=== PATIENT | female | born 1960 | race Caucasian/White ===

== ENCOUNTER 2017-11-18 17:58 | Emergency (ER) | payer OTHER ==
[2017-11-18] MEDS ORDERED: LIDOCAINE 1% 20 ML MDV ONE (18:10)
--- NOTE | 2017-11-18 18:24 | ER ---
Nurse's Notes [facility] Name: Faith Antunez Age: 57 yrs Sex: Female : 1960 Arrival Date: 11/18/2017 Time: 18:01 Bed 14 Private MD: Diagnosis: Laceration without foreign body of left thumb without damage to nail Presentation: 11/18 18:05 Presenting complaint: Patient states: I cut my left thumb with a knife while cutting la1 chicken. Transition of care: patient was not received from another setting of care. Onset of symptoms was November 18, 2017. Initial Sepsis Screen: Does the patient meet any 2 criteria? No. Patient's initial sepsis screen is negative. Does the patient have a suspected source of infection? No. Patient's initial sepsis screen is negative. Care prior to arrival: None. 18:05 Method Of Arrival: Ambulatory la1 18:05 Acuity: ERICH 4 la1 Triage Assessment: 18:09 General: Appears in no apparent distress. comfortable, Behavior is calm, cooperative. rb1 Historical: - Allergies: 18:06 No Known Allergies; la1 - Home Meds: 18:09 Unable to obtain [Active]; rb1 - PMHx: 18:06 ms; Lupus; la1 - PSHx: 18:09 None; rb1 - Immunization history:: Adult Immunizations up to date. - Social history:: Smoking status: Patient/guardian denies using tobacco. Screenin:09 Abuse screen: Denies threats or abuse. Nutritional screening: No deficits noted. rb1 Tuberculosis screening: No symptoms or risk factors identified. Fall Risk None identified. Assessment: 18:09 General: Appears in no apparent distress. comfortable, Behavior is calm, cooperative. rb1 Pain: Complains of pain in IP of left thumb Pain currently is 5 out of 10 on a pain scale. Neuro: Level of Consciousness is awake, alert, obeys commands, Oriented to person, place, time, situation. Cardiovascular: Capillary refill < 3 seconds is brisk in bilateral fingers. Respiratory: Airway is patent Respiratory effort is even, unlabored, Respiratory pattern is regular, symmetrical. GI: No signs and/or symptoms were reported involving the gastrointestinal system. : No signs and/or symptoms were reported regarding the genitourinary system. Derm: Skin is pink, warm \T\ dry. Musculoskeletal: Range of motion: intact in all extremities. Injury Description: Laceration sustained to IP of left thumb is contaminated, a small amount of bleeding noted at this time. Vital Signs: 18:06 BP 102 / 62; Pulse 62; Resp 18; Temp 98.4; Pulse Ox 100% on R/A; Weight 56.7 kg; Height la1 5 ft. 7 in. (170.18 cm); 18:06 Body Mass Index 19.58 (56.70 kg, 170.18 cm) la1 ED Course: 18:01 Patient arrived in ED. sb2 18:05 Bayron Gunn PA is PHCP. jr8 18:05 Isaiah Darling MD is Attending Physician. jr8 18:06 Merced Rangel, RN is Primary Nurse. rb1 18:06 Triage completed. la1 18:07 Arm band placed on left wrist. la1 18:09 Patient has correct armband on for positive identification. Bed in low position. Call rb1 light in reach. Side rails up X 1. Pulse ox on. NIBP on. 18:31 No provider procedures requiring assistance completed. Assist provider with laceration rb1 repair. Patient did not have IV access during this emergency room visit. Administered Medications: 18:11 Drug: Lidocaine (1 %) 5 mg Route: Infiltration; la1 Outcome: 18:23 Discharge ordered by . jr8 18: Patient left the ED. rb1 18:31 Discharged to home ambulatory. rb1 18:31 Condition: stable 18:31 Discharge instructions given to patient, Instructed on discharge instructions, follow up and referral plans. Demonstrated understanding of instructions, follow-up care, Prescriptions given X none Signatures: Bayron Gunn PA PA jr8 Raman Gray RN RN la1 Merced Rangel, RN RN rb1 Irene Rebolledo sb2
--- NOTE | 2017-11-18 18:24 | EDPHYS ---
Physician Documentation [facility] Name: Faith Antunez Age: 57 yrs Sex: Female : 1960 Arrival Date: 11/18/2017 Time: 18:01 Bed 14 Private MD: ED Physician Isaiah Darling HPI: 11/18 18:23 This 57 yrs old Female presents to ER via Ambulatory with complaints of LAC jr8 TO THUMB. 18:23 The patient or guardian reports a laceration, 2.5 cm(s), simple. The complaints affect jr8 the IP of left thumb. Context: The problem was sustained at home, resulted from cooking. Onset: The symptoms/episode began/occurred acutely, today. Modifying factors: The symptoms are alleviated by nothing, the symptoms are aggravated by nothing. Associated signs and symptoms: The patient has no apparent associated signs or symptoms. Severity of symptoms: At their worst the symptoms were mild, in the emergency department the symptoms are unchanged. The patient has not experienced similar symptoms in the past. The patient has not recently seen a physician. was cutting a chicken and accidently cut finger . Historical: - Allergies: 18:06 No Known Allergies; la1 - Home Meds: 18:09 Unable to obtain [Active]; rb1 - PMHx: 18:06 ms; Lupus; la1 - PSHx: 18:09 None; rb1 - Immunization history:: Adult Immunizations up to date. - Social history:: Smoking status: Patient/guardian denies using tobacco. ROS: 18:23 Eyes: Negative for injury, pain, redness, and discharge, ENT: Negative for injury, jr8 pain, and discharge, Neck: Negative for injury, pain, and swelling, Cardiovascular: Negative for chest pain, palpitations, and edema, Respiratory: Negative for shortness of breath, cough, wheezing, and pleuritic chest pain, Abdomen/GI: Negative for abdominal pain, nausea, vomiting, diarrhea, and constipation, Back: Negative for injury and pain, MS/Extremity: Negative for injury and deformity, Neuro: Negative for headache, weakness, numbness, tingling, and seizure. 18:23 Skin: Positive for laceration(s), of the IP of left thumb. Exam: 18:23 Cardiovascular: Regular rate and rhythm with a normal S1 and S2. No gallops, murmurs, jr8 or rubs. Normal PMI, no JVD. No pulse deficits. Respiratory: Lungs have equal breath sounds bilaterally, clear to auscultation and percussion. No rales, rhonchi or wheezes noted. No increased work of breathing, no retractions or nasal flaring. MS/ Extremity: Pulses equal, no cyanosis. Neurovascular intact. Full, normal range of motion. Neuro: Awake and alert, GCS 15, oriented to person, place, time, and situation. Cranial nerves II-XII grossly intact. Motor strength 5/5 in all extremities. Sensory grossly intact. Cerebellar exam normal. Normal gait. 18:23 Skin: injury, laceration(s), the wound is approximately 2.5 cm(s), with a depth of .3 cm(s), of the IP of left thumb, that can be described as no foreign body, linear, with mild bleeding. Vital Signs: 18:06 BP 102 / 62; Pulse 62; Resp 18; Temp 98.4; Pulse Ox 100% on R/A; Weight 56.7 kg; Height la1 5 ft. 7 in. (170.18 cm); 18:06 Body Mass Index 19.58 (56.70 kg, 170.18 cm) la1 Laceration: 18:21 Wound Repair of 2.5cm ( 1.0in ) subcutaneous laceration to left thumb. Linear shaped.. jr8 Minimal bleeding noted.. Distal neuro/vascular/tendon intact. Anesthesia: Local anesthetic administered with 2 mls of 1% lidocaine. Wound prep: Extensive cleansing with betadine, Wound explored extensively. Skin closed with 3 4-0 Prolene using interrupted sutures and sterile technique. Patient tolerated well. MDM: 18:06 Patient medically screened. jr8 18:21 Data reviewed: vital signs, nurses notes, and as a result, I will discharge patient. jr8 Data interpreted: Pulse oximetry: on room air is 100 %. Interpretation: normal. Counseling: I had a detailed discussion with the patient and/or guardian regarding: the historical points, exam findings, and any diagnostic results supporting the discharge/admit diagnosis, the need for outpatient follow up, a family practitioner, to return to the emergency department if symptoms worsen or persist or if there are any questions or concerns that arise at home. 18:23 ED course: patient up to date with tetanus . jr8 11/18 18:11 Order name: Suture Tray Setup; Complete Time: 18:11 la1 Administered Medications: 18:11 Drug: Lidocaine (1 %) 5 mg Route: Infiltration; la1 Disposition: 11/19 07:49 Co-signature as Attending Physician, Isaiah Darling MD I agree with the assessment and coy plan of care. Disposition: 11/18/17 18:23 Discharged to Home. Impression: Laceration without foreign body of left thumb without damage to nail. - Condition is Stable. - Discharge Instructions: Laceration Care, Adult. - Medication Reconciliation Form, Thank You Letter, Antibiotic Education, Prescription Opioid Use form. - Follow up: Private Physician; When: 7 - 10 days; Reason: Wound Recheck, Recheck today's complaints, Continuance of care, Staple/Suture removal, Re-evaluation by your physician. - Problem is new. - Symptoms have improved. Signatures: Isaiah Darling MD MD cha Roszak, Josh, PA PA jr8 Raman Gray RN RN la1 Merced Rangel, RN RN rb1 Corrections: (The following items were deleted from the chart) 11/18 18:31 18:23 11/18/2017 18:23 Discharged to Home. Impression: Laceration without foreign body rb1 of left thumb without damage to nail. Condition is Stable. Forms are Medication Reconciliation Form, Thank You Letter, Antibiotic Education, Prescription Opioid Use. Follow up: Private Physician; When: 7 - 10 days; Reason: Wound Recheck, Recheck today's complaints, Continuance of care, Staple/Suture removal, Re-evaluation by your physician. Problem is new. Symptoms have improved. jr8
== END 2017-11-18 18:31 | disposition home or self-care (01) ==
LOC: ER 17:58
PROC: 0JQK0ZZ Repair Left Hand Subcutaneous Tissue and Fascia, Open Approach (ICD-10-PCS; principal; 2017-11-18)
DX: S61.012A Laceration without foreign body of left thumb without damage to nail, initial encounter (principal); W45.8XXA Other foreign body or object entering through skin, initial encounter; Y93.G3 Activity, cooking and baking; Y92.000 Kitchen of unspecified non-institutional (private) residence as the place of occurrence of the external cause
CPT/HCPCS: 99284